=== PATIENT | male | born 1975 | race Caucasian/White ===

== ENCOUNTER 2018-10-19 01:10 | Emergency (ER) | payer MEDICAID ==
[2018-10-19 01:46] LABS: ADD MAN DIFF? NO
[2018-10-19] MEDS: ONDANSETRON 4 MG INJ IV ×2 (01:47→02:22)
[2018-10-19] MEDS: morphine 4 MG/ML VIAL IV (01:47)
[2018-10-19 01:50] LABS: BASOPHIL # 0.1 10^3/ul (0.0-0.1); EOSINOPHILS # 0.1 10^3/ul (0.0-0.5); EOSINOPHILS % 0.6 % (0.0-7.0); HEMATOCRIT 39.4 % (42.0-52.0); HEMOGLOBIN 14.1 g/dl (14.0-18.0); LYMPHOCYTES # 1.7 10^3/ul (0.8-2.9); LYMPHOCYTES % 15.3 % (15.0-51.0); MEAN CORPUSCULAR HEMOGLOBIN 31.7 pg (29.0-33.0); MEAN CORPUSCULAR HGB CONC 35.8 g/dl (32.0-37.0); MEAN CORPUSCULAR VOLUME 88.5 fl (82.0-101.0); MEAN PLATELET VOLUME 9.5 fl (7.4-10.4); MONOCYTE # 0.8 10^3/ul (0.3-0.9); MONOCYTES % 7.5 % (0.0-11.0); NEUTROPHIL # 8.3 10^3/ul (1.6-7.5); NEUTROPHILS % 74.9 % (39.0-77.0); PLATELET COUNT 248 10^3/UL (140-415); RED BLOOD COUNT 4.45 10^6/ul (4.70-6.10); RED CELL DISTRIBUTION WIDTH 11.9 % (11.5-14.5)
[2018-10-19 02:11] LABS: ALANINE AMINOTRANSFERASE 26 IU/L (13-69); ALBUMIN 4.2 g/dl (3.3-4.9); ALKALINE PHOSPHATASE 58 IU/L (42-121); ANION GAP 13 (5-13); ASPARTATE AMINO TRANSFERASE 21 IU/L (15-46); BILIRUBIN,INDIRECT 0.8 mg/dl (0-1.1); BILIRUBIN,TOTAL 0.8 mg/dl (0.2-1.3); BLOOD UREA NITROGEN 20 mg/dl (7-20); CALCIUM 8.9 mg/dl (8.4-10.2); CARBON DIOXIDE 21 mmol/L (21-31); CHLORIDE 107 mmol/L (97-110); CREATININE 0.98 mg/dl (0.61-1.24); Estimated GFR > 60 mL/min (>60); GLUCOSE 169 mg/dl (70-220); LIPASE 49 U/L (23-300); SODIUM 141 mmol/L (135-144)
[2018-10-19 02:21] LABS: TROPONIN-I < 0.012 ng/ml (0.000-0.120)
[2018-10-19] MEDS: KETAMINE HCL (50 MG/ML) 1ml syringe IV (02:23)
[2018-10-19] MEDS: HYDROCODONE/APAP (5/325) TAB PO (04:56)
[2018-10-19] MEDS: KETOROLAC 15 MG INJ IV (04:56)
[2018-10-19] MEDS ORDERED: SOD CHLORIDE 0.9% 1,000 ML IV (05:00)
[2018-10-19 05:34] LABS: URINE PH (Dip) POC 5.5 (5.0-8.5)
[2018-10-19 05:34] LABS: URINE BLOOD (Dip) POC 2+ (NEGATIVE); URINE GLUCOSE (Dip) POC Negative (NEGATIVE); URINE KETONES (Dip) POC 2+ (NEGATIVE); URINE LEUKOCYTE EST (Dip) POC Negative (NEGATIVE); URINE NITRITE (Dip) POC Negative (NEGATIVE); URINE TOTAL PROTEIN POC 1+ (NEGATIVE)
== END 2018-10-19 06:05 | disposition home or self-care (01) ==
LOC: E/R 01:10
DX: N20.0 Calculus of kidney (principal); R40.2142 Coma scale, eyes open, spontaneous, at arrival to emergency department; R40.2362 Coma scale, best motor response, obeys commands, at arrival to emergency department; R40.2252 Coma scale, best verbal response, oriented, at arrival to emergency department
CPT/HCPCS: 36415; 71045; 74176; 76870; 80053; 81003; 82962; 83690; 84484; 85025; 93005; 96374; 96375; 96376; 99285-25